=== PATIENT | male | born 1955 | race Caucasian/White ===

== ENCOUNTER 2020-03-25 10:09 | Emergency (ER) | payer BC ==
[2020-03-25 10:39] LABS: #Basophils 0.1 thou/uL (0.0-0.2); #Eosinphils 0.1 thou/uL (0.0-0.7); #Lymphocytes 1.4 thou/uL (1.20-3.40); #Monocytes 0.7 thou/uL (0.11-0.59); %Basophils 1.7 % (0.0-1.0); %Lymphocytes 16.4 % (21.0-51.0); %Monocytes 8.6 % (0.0-10.0); %Neutrophils 72.3 % (42.0-75.0); Mean Corpuscular HGB CONC 34.4 g/dL (32.0-36.0); Mean Corpuscular Hemoglobin 32.2 pg (27.0-31.0); Mean Corpuscular Volume 93.6 fL (78.0-98.0); Mean Platelet Volume 8.5 fL (7.4-10.4); Platelet Count 198 thou/uL (130-400); RBC Distribution Width 11.9 % (11.5-14.5); Red Blood Cell (RBC) Count 4.97 mill/uL (4.70-6.10); White Blood Cell (WBC) Count 8.3 thou/uL (4.8-10.8)
[2020-03-25] MEDS ORDERED: Morphine 4 MG/ML VIAL ONE ×2 (10:41→11:46)
[2020-03-25] MEDS ORDERED: Sodium Chloride 0.9% 1,000 ML ONE (10:41)
[2020-03-25] MEDS ORDERED: Ondansetron PF 4 MG/2 ML Vial ONE (10:41)
[2020-03-25 10:43] LABS: Bilirubin Small (Negative); Blood, Urine Large (Negative); Clarity Cloudy (Clear); Glucose, Urine (Dipstick) Negative (Negative); Ketone, Urine Negative (Negative); Leukocyte Negative (Negative); Nitrite Negative (Negative); Protein, Urine (Dipstick) 100 mg/dL (Neg-Trace); Urobilinogen 0.2 mg/dL (Less than 2); pH, Urine 5.5 (5.0-9.0)
[2020-03-25 10:44] LABS: Specific Gravity, Urine 1.025 (1.002-1.036)
[2020-03-25 10:47] LABS: Bacteria/HPF Rare-Few HPF (None Seen); RBC/HPF Greater than 50 HPF (0-3); Squamous Epithelial 0-3 HPF (0-3); WBC/HPF 0-3 HPF (0-3)
[2020-03-25 10:53] LABS: ALT (SGPT) 23 U/L (8-55); AST (SGOT) 18 U/L (5-34); Albumin 4.4 g/dL (3.4-4.8); Alkaline Phosphatase 76 U/L (40-110); Anion Gap 17 mmol/L (10-20); BUN (Urea Nitrogen) 13 mg/dL (8.4-25.7); Bilirubin, Total 0.8 mg/dL (0.2-1.2); Calc. Creatinine Clearance 0 mL/min (70-130); Calcium 8.9 mg/dL (7.8-10.44); Carbon Dioxide 23 mmol/L (23-31); Chloride 105 mmol/L (98-107); Globulin 2.9 g/dL (2.4-3.5); Glucose 148 mg/dL (80-115); Potassium 3.9 mmol/L (3.5-5.1); Protein, Total 7.3 g/dL (5.8-8.1); Sodium 141 mmol/L (136-145)
[2020-03-25] MEDS ORDERED: Ketorolac Tromethamine 30 MG/ML VIAL ONE (11:17)
[2020-03-25] MEDS ORDERED: Tamsulosin HCl 0.4 MG CAP ONE (11:17)
--- NOTE | 2020-03-25 12:25 | CT ---
CT ABDOMEN AND PELVIS WITHOUT CONTRAST STONE PROTOCOL: HISTORY: Right flank pain and abdominal pain. COMPARISON: None. FINDINGS: Lung bases are clear. No pericardial effusion. Low-grade right-sided hydroureteral nephrosis due to a partially obstructing 2 x 3 mm calculus proxim al right ureter approximately 5 cm from the right renal pelvis. No significant perinephric stranding . No other renal calculus is appreciated. No left-sided hydroureteral nephrosis or nephroureterolit hiasis. Noncontrast evaluation of the spleen, pancreas, liver, and gallbladder are all normal. No dilated lo ops of large or small bowel. No free intraperitoneal gas or fluid. No bowel obstruction. The appendix is visualized and is normal. High-grade degenerative facet changes lower lumbar spine as well as disk degeneration at L3-S1. 1-2 mm L4-L5 and L5-S1 retrolisthesis. IMPRESSION: Partially obstructing 2 x 3 mm calculus proximal right ureter 5 cm from the renal pelvis with low-gra de right-sided hydronephrosis. No other renal calculus is appreciated bilaterally. No left-sided hy droureteral nephrosis or nephroureterolithiasis. POS: OFF
== END 2020-03-25 12:07 | disposition home or self-care (01) ==
LOC: MADERS 10:09
DX: N13.2 Hydronephrosis with renal and ureteral calculous obstruction (principal); Z79.01 Long term (current) use of anticoagulants
CPT/HCPCS: 74176; 80053; 81003; 81015; 85025; 96374; 96375; J1885; J2270; J2405; J7050